=== PATIENT | male | born 1980 | race Caucasian/White ===

== ENCOUNTER 2017-02-25 22:38 | Emergency (ER) | payer OTHER | END 2017-02-26 02:49 | disposition home or self-care (01) | LOC: ER 22:38 | DX: S82.842A Displaced bimalleolar fracture of left lower leg, initial encounter for closed fracture (principal); L03.116 Cellulitis of left lower limb; I25.2 Old myocardial infarction; F17.210 Nicotine dependence, cigarettes, uncomplicated; Z90.49 Acquired absence of other specified parts of digestive tract; Z88.0 Allergy status to penicillin; Z88.1 Allergy status to other antibiotic agents; X58.XXXA Exposure to other specified factors, initial encounter; Y93.67 Activity, basketball | CPT/HCPCS: 36415; 96365; 96375; J3370 ==

== ENCOUNTER 2017-02-26 21:51 | Emergency (ER) | payer OTHER | END 2017-02-27 01:26 | disposition home or self-care (01) | LOC: ER 21:51 | DX: L03.116 Cellulitis of left lower limb (principal); I25.2 Old myocardial infarction; F17.210 Nicotine dependence, cigarettes, uncomplicated; Z90.49 Acquired absence of other specified parts of digestive tract; Z88.0 Allergy status to penicillin; Z88.1 Allergy status to other antibiotic agents | CPT/HCPCS: 36415; 96365; J3370 ==